=== PATIENT | female | born 1940 | race Caucasian/White ===

== ENCOUNTER → 2017-01-18 | Outpatient (CLI) | payer MEDICARE, BC ==
[2017-01-18 10:11] LABS: CH 32.1; HCT 39.1 % (34.0-46.0); HDW 2.42; HGB 12.6 gm/dL (11.4-16.0); MCH 31.4 pg (25.0-35.0); MCHC 32.2 g/dL (31.0-37.0); MCV 97.6 fL (80.0-100.0); Mean Platelet Volume 6.2; RDW 12.8 % (11.5-15.5); WBC 5.7 k/uL (3.8-10.6)
[2017-01-18 10:17] LABS: ALT 17 U/L (9-52); AST 22 U/L (14-36); Alkaline Phosphatase 71 U/L (38-126); Anion Gap 9 mmol/L; Blood Urea Nitrogen 8 mg/dL (7-17); Calcium 9.9 mg/dL (8.4-10.2); Carbon Dioxide 27 mmol/L (22-30); Chloride 105 mmol/L (98-107); Cholesterol 259 mg/dL (<200); Glucose 93 mg/dL (74-99); HDL Cholesterol 57 mg/dL (40-60); Non-African American GFR(MDRD) >60 (>60 ml/min/1.73 sqM); Potassium 4.4 mmol/L (3.5-5.1); Sodium 141 mmol/L (137-145); Total Bilirubin 0.6 mg/dL (0.2-1.3); Total Protein 7.5 g/dL (6.3-8.2); Triglycerides 233 mg/dL (<150)
[2017-01-18 14:50] LABS: Vitamin B12 345 pg/mL
== END | disposition home or self-care (01) ==
LOC: LABWHC1 09:19
PROVIDERS: ATTEND Psychiatry & Neurology Neurology
DX: Z00.00 Encounter for general adult medical examination without abnormal findings (principal); R41.3 Other amnesia
CPT/HCPCS: 36415; 80053; 80061; 82607; 82747; 85027

== ENCOUNTER 2018-06-02 20:19 | Emergency (ER) | payer MEDICARE, BC ==
[2018-06-02 21:25] LABS: Basophils % (A) 0 %; Eosinophils # (A) 0.1 k/uL (0-0.7); Eosinophils % (A) 1 %; HCT 33.4 % (34.0-46.0); Lymphocytes # (A) 2.4 k/uL (1.0-4.8); Lymphocytes % (A) 33 %; MCH 31.6 pg (25.0-35.0); MCHC 32.9 g/dL (31.0-37.0); MCV 96.1 fL (80.0-100.0); Mean Platelet Volume 7.2; Monocytes # (A) 0.3 k/uL (0-1.0); Monocytes % (A) 4 %; Neutrophils # (A) 4.4 k/uL (1.3-7.7); Neutrophils % (A) 60 %; Platelet Count 362 k/uL (150-450); RBC 3.48 m/uL (3.80-5.40); RDW 12.5 % (11.5-15.5); WBC 7.3 k/uL (3.8-10.6)
--- NOTE | 2018-06-02 21:28 | ED ---
Abdominal Pain HPI - General Chief Complaint: Abdominal Pain Stated Complaint: ABD PAIN Time Seen by Provider: 06/02/18 21:27 Source: EMS Mode of arrival: EMS Limitations: no limitations - History of Present Illness Initial Comments: Barbara Meeks is a 78-year-old female who presents to the emergency department for evaluation of progressively worsening abdominal pain. Patient reports she's had some crampy abdominal pain for approximately one week, she reports that over the past 2 days the pain is become significantly worse. Patient reports initially she was having bouts of nonbloody diarrhea but now is constipated. She reports she had a small bowel movement yesterday no bowel movements today. She describes the pain as being located in her periumbilical area with radiation throughout her abdomen. Pain is associated with nausea, decreased appetite, decreased by mouth intake, previous diarrhea now constipation. Patient denies any urinary symptoms or history of kidney stones. Patient does have a surgical history including appendectomy, cholecystectomy and a hysterectomy. stutter bedside expresses concern that the patient's pain is been going on longer than she reports, she feels that her mother hasn't been eating well for 2 weeks. Mother is appeared quite unwell today. - Related Data Home Medications Medication Instructions Recorded Confirmed Ascorbic Acid [Vitamin C] 500 mg PO DAILY 06/02/18 06/02/18 Aspirin [Adult Low Dose Aspirin EC] 81 mg PO DAILY 06/02/18 06/02/18 Calcium Carbonate [Calcium] 600 mg PO DAILY 06/02/18 06/02/18 Donepezil [Aricept] 10 mg PO DAILY 06/02/18 06/02/18 Enalapril [Vasotec] 10 mg PO DAILY 06/02/18 06/02/18 Red Yeast Rice 600 mg PO DAILY 06/02/18 06/02/18 Allergies Allergy/AdvReac Type Severity Reaction Status Date / Time acetaminophen Allergy Unknown Verified 06/02/18 21:25 [From Darvocet-N] adhesive tape Allergy Unknown Verified 06/02/18 21:25 cephalexin Allergy Rash/Hives Verified 06/02/18 21:25 ciprofloxacin [From Cipro] Allergy Rash/Hives Verified 06/02/18 21:25 clindamycin Allergy Rash/Hives Verified 06/02/18 21:25 codeine Allergy Rash/Hives Verified 06/02/18 21:25 erythromycin base Allergy Rash/Hives Verified 06/02/18 21:25 [From Erythrocin] hydrocodone [From Vicodin] Allergy Rash/Hives Verified 06/02/18 21:25 ibuprofen [From Motrin] Allergy Rash/Hives Verified 06/02/18 21:25 iodine Allergy Rash/Hives Verified 06/02/18 21:25 meperidine [From Demerol] Allergy Rash/Hives Verified 06/02/18 21:25 Milk Containing Products Allergy Rash/Hives Verified 06/02/18 21:25 [Dairy] morphine Allergy Rash/Hives Verified 06/02/18 21:25 naproxen Allergy Rash/Hives Verified 06/02/18 21:25 pentazocine [From Talwin] Allergy Rash/Hives Verified 06/02/18 21:25 propoxyphene Allergy Rash/Hives Verified 06/02/18 21:25 [From Darvocet-N] tetracycline Allergy Rash/Hives Verified 06/02/18 21:25 Review of Systems ROS Statement: Those systems with pertinent positive or pertinent negative responses have been documented in the HPI. ROS Other: All systems not noted in ROS Statement are negative. Past Medical History Past Medical History: Dementia, Hypertension History of Any Multi-Drug Resistant Organisms: None Reported Past Surgical History: Cholecystectomy, Hysterectomy, Orthopedic Surgery Past Psychological History: No Psychological Hx Reported Smoking Status: Former smoker Past Alcohol Use History: None Reported Past Drug Use History: None Reported General Exam - General Exam Comments Initial Comments: Physical Exam GENERAL: Elderly female in mild distress. HENT: Normocephalic, Atraumatic. EYES: PERRL, EOMI PULMONARY: Unlabored respirations. No audible rales rhonchi or wheezing was noted. CARDIOVASCULAR: There is a regular rate and rhythm ABDOMEN: Soft with normal bowel sounds. Mild tenderness to palpation in the suprapubic and left lower quadrant region No peritoneal signs No pulsating mass No abdominal bruit SKIN: Skin is clear with no lesions or rashes and otherwise unremarkable. : Deferred NEUROLOGIC: Patient is alert and oriented x3. Moving all extremities spontaneously MUSCULOSKELETAL: Normal extremities with adequate strength and full range of motion. No lower extremity swelling or edema. No calf tenderness. PSYCHIATRIC: Normal psychiatric evaluation. Limitations: no limitations Limitations: no limitations Course Vital Signs 10/22/18 10/22/18 10/23/18 20:22 23:00 00:00 Temperature 98.6 F Pulse Rate 94 93 91 Respiratory 18 20 18 Rate Blood Pressure 145/87 145/87 145/87 O2 Sat by Pulse 99 98 98 Oximetry 06/03/18 06/03/18 00:17 01:35 Temperature 98.7 F Pulse Rate 87 81 Respiratory 18 16 Rate Blood Pressure 159/82 144/69 O2 Sat by Pulse 97 98 Oximetry Medical Decision Making - Medical Decision Making The patient was seen and evaluated, history was obtained from the patient as well as both her daughters at bedside Patient with a surgical history no recent surgeries, no other history of any irritable or inflammatory bowel disease presenting with abdominal pain. Patient initially had some diarrhea but is now experiencing constipation for one day. Patient reports lower abdominal pain Labs and imaging were ordered Labs revealed no significant abnormality Imaging reveals a mildly enlarged common bile duct as well as evidence of constipation no other acute pathology identified in the CT Results were discussed with the patient who has not yet provided a urine sample. I advised patient will need a urine sample to complete her evaluation. The provide a urine sample which had no evidence of urinary tract infection Results were discussed with patient and her daughter bedside. At this time there are no findings to identify the cause of the patient's vague abdominal pain. I did discuss treatment of her constipation with increasing fluid intake , fruits and vegetables, I advised that since she is arty having crampy abdominal pain stimulant medications or magnesium citrate may worsen that. I did recommend a stool softener. All questions pertaining care were answered best my ability. Patient states she feels comfortable being discharged home after negative workup. Patient was discharged home in stable condition. - Lab Data Result diagrams: 06/02/18 20:33 06/02/18 20:33 Lab Results 06/02/18 06/02/18 06/03/18 Range/Units 20:33 20:33 00:27 WBC 7.3 (3.8-10.6) k/uL RBC 3.48 L (3.80-5.40) m/uL Hgb 11.0 L (11.4-16.0) gm/dL Hct 33.4 L (34.0-46.0) % MCV 96.1 (80.0-100.0) fL MCH 31.6 (25.0-35.0) pg MCHC 32.9 (31.0-37.0) g/dL RDW 12.5 (11.5-15.5) % Plt Count 362 (150-450) k/uL Neutrophils % 60 % Lymphocytes % 33 % Monocytes % 4 % Eosinophils % 1 % Basophils % 0 % Neutrophils # 4.4 (1.3-7.7) k/uL Lymphocytes # 2.4 (1.0-4.8) k/uL Monocytes # 0.3 (0-1.0) k/uL Eosinophils # 0.1 (0-0.7) k/uL Basophils # 0.0 (0-0.2) k/uL Sodium 140 (137-145) mmol/L Potassium 3.7 (3.5-5.1) mmol/L Chloride 109 H (98-107) mmol/L Carbon Dioxide 23 (22-30) mmol/L Anion Gap 8 mmol/L BUN 26 H (7-17) mg/dL Creatinine 0.50 L (0.52-1.04) mg/dL Est GFR (CKD-EPI)AfAm >90 (>60 ml/min/1.73 sqM) Est GFR (CKD-EPI)NonAf >90 (>60 ml/min/1.73 sqM) Glucose 109 H (74-99) mg/dL Calcium 9.8 (8.4-10.2) mg/dL Total Bilirubin 0.4 (0.2-1.3) mg/dL AST 22 (14-36) U/L ALT 16 (9-52) U/L Alkaline Phosphatase 69 (38-126) U/L Total Protein 6.7 (6.3-8.2) g/dL Albumin 3.9 (3.5-5.0) g/dL Amylase 35 (30-110) U/L Lipase 81 (23-300) U/L Urine Color Light Yellow Urine Appearance Clear (Clear) Urine pH 5.5 (5.0-8.0) Ur Specific [place] >1.050 H (1.001-1.035) Urine Protein Negative (Negative) Urine Glucose (UA) Negative (Negative) Urine Ketones 1+ H (Negative) Urine Blood Small H (Negative) Urine Nitrite Negative (Negative) Urine Bilirubin Negative (Negative) Urine Urobilinogen <2.0 (<2.0) mg/dL Ur Leukocyte Esterase Negative (Negative) Urine RBC 2 (0-5) /hpf Urine WBC 5 (0-5) /hpf Ur Squamous Epith Cells <1 (0-4) /hpf Urine Bacteria Rare H (None) /hpf Urine Mucus Rare H (None) /hpf Disposition Clinical Impression: Abdominal pain Disposition: HOME SELF-CARE Instructions: Abdominal Pain (ED) Is patient prescribed a controlled substance at d/c from ED?: No Referrals: Hemal Miller MD [Primary Care Provider] - 1-2 days Time of Disposition: 01:22
[2018-06-02 21:31] LABS: ALT 16 U/L (9-52); AST 22 U/L (14-36); Alkaline Phosphatase 69 U/L (38-126); Amylase 35 U/L (30-110); Anion Gap 8 mmol/L; Blood Urea Nitrogen 26 mg/dL (7-17); Calcium 9.8 mg/dL (8.4-10.2); Carbon Dioxide 23 mmol/L (22-30); Chloride 109 mmol/L (98-107); Glucose 109 mg/dL (74-99); Lipase 81 U/L (23-300); Potassium 3.7 mmol/L (3.5-5.1); Sodium 140 mmol/L (137-145); Total Bilirubin 0.4 mg/dL (0.2-1.3); Total Protein 6.7 g/dL (6.3-8.2)
[2018-06-02 21:33] LABS: Albumin 3.9 g/dL (3.5-5.0)
[2018-06-02] MEDS ORDERED: predniSONE 20 MG TAB PO STA (22:24)
[2018-06-02] MEDS ORDERED: diphenhydrAMINE 50 MG/ML 1 ML VIAL IVP STA (22:24)
[2018-06-02] MEDS ORDERED: FAMOTIDINE 20 MG/2 ML VIAL IV STA (22:24)
--- NOTE | 2018-06-02 23:38 | CT ---
EXAMINATION TYPE: CT abdomen pelvis w con DATE OF EXAM: 06/02/2018 COMPARISON: None HISTORY: gen abd pain for [address] DLP: 552.10 mGycm Automated exposure control for dose reduction was used. TECHNIQUE: Helical acquisition of images was performed from the lung bases through the pelvis. CONTRAST: Performed without Oral Contrast and with IV Contrast, patient injected with 100 mL of Isovue 300. FINDINGS: There is some mild interstitial infiltrate at the lung bases. There is small hiatal hernia. The remai nder of the stomach appears normal. There is no pericardial effusion. There are clips from cholecystectomy. There is some prominence of the bile ducts. Common bile duct is large and measures 12 mm. There is one similar calcification on the anterior spleen. There is no jay jay dence of pancreatic mass. There is no adrenal mass. Kidneys have normal size and contour. There is no hydronephrosis. Ureters a re not dilated. Abdominal aorta is atheromatous. There is no retroperitoneal adenopathy. There is no evidence of a bowel obstruction. I see no intestinal wall thickening. There are no dilated loops. The re are multiple diverticula in the proximal sigmoid colon. There is some retained fecal material in t he rectosigmoid colon. The appendix is not seen. There is no sign of appendicitis. Bladder distends smoothly. There is no evidence of a pelvic mass. There is hysterectomy. There is 5 mm anterior subluxation of L4 in relation L5 with disc space narrowing. There is narrowing also at L5-S1 disc. The posterior elements are intact. There is no compression fracture. The bony pe lvis appears intact. IMPRESSION: THERE IS MILD CONSTIPATION. MILD SIGMOID DIVERTICULOSIS. 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 BORDERLINE DILATED BILIARY TREE. COMPARISON WITH OLD EXAM WOULD BE HELPFUL.
[2018-06-03 00:53] LABS: Appearance,Urine Clear (Clear); Bacteria,Urine Rare /hpf; Bilirubin,Urine Negative (Negative); Blood,Urine Small (Negative); Color,Urine Light Yellow; Glucose,Urine (UA) Negative (Negative); Ketones,Urine 1+ (Negative); Leukocyte Esterase,Urine Negative (Negative); Mucus,Urine Rare /hpf; Nitrite,Urine Negative (Negative); PH, Urine 5.5 (5.0-8.0); Protein,Urine Negative (Negative); RBC,Urine 2 /hpf (0-5); Squamous Epithelial Cell,Urine <1 /hpf (0-4); Urobilinogen,Urine <2.0 mg/dL (<2.0); WBC,Urine 5 /hpf (0-5)
[2018-06-03 01:24] LABS: Specific Gravity,Urine >1.050 (1.001-1.035)
[2018-06-03 01:37] VITALS: BP 144/69; PULSE 81; RESP 16; TEMP 98.7
== END 2018-06-03 01:37 | disposition home or self-care (01) ==
LOC: EC 20:19
DX: R10.30 Lower abdominal pain, unspecified (principal); R63.0 Anorexia; F03.90 Unspecified dementia, unspecified severity, without behavioral disturbance, psychotic disturbance, mood disturbance, and anxiety; I10 Essential (primary) hypertension; Z79.82 Long term (current) use of aspirin; Z79.899 Other long term (current) drug therapy; Z88.6 Allergy status to analgesic agent; Z91.048 Other nonmedicinal substance allergy status; Z88.1 Allergy status to other antibiotic agents; Z88.5 Allergy status to narcotic agent; Z91.011 Allergy to milk products; Z87.891 Personal history of nicotine dependence; Z90.89 Acquired absence of other organs; Z90.710 Acquired absence of both cervix and uterus; Z90.49 Acquired absence of other specified parts of digestive tract
CPT/HCPCS: 36415; 80053; 82150; 83690; 85025; 81001; 74177; 99285; 96374; 96375; J1200; J7512; Q9967